=== PATIENT | male | born 1960 | race Caucasian/White ===

== ENCOUNTER 2018-04-18 15:56 | Emergency (ER) | payer OTHER ==
[~2018-04-18] VITALS: Ht 177.8 cm; Wt 65.8 kg
[2018-04-18] MEDS ORDERED: CLON1TAB12 PO (16:08)
[2018-04-18] MEDS ORDERED: TAMS-3 PO (16:08)
[2018-04-18] MEDS ORDERED: FINA5TAB11 PO (16:08)
[2018-04-18] MEDS ORDERED: METO-356 PO (16:08)
[2018-04-18] MEDS ORDERED: CARB1TAB21 PO (16:08)
[2018-04-18] MEDS ORDERED: CARB1TAB40 PO (16:08)
[2018-04-18] MEDS ORDERED: SERT50TA PO (16:08)
--- NOTE | 2018-04-18 16:25 | NUR ---
Dr Westbrook at the bedside for MSE.
[2018-04-18 16:55] LABS: BASOPHILS % (AUTO) 0.7 % (0.0-2.0); EOSINOPHILS # (AUTO) 0.3 K/uL (0.0-0.7); EOSINOPHILS % (AUTO) 4.1 % (0.0-7.0); HEMATOCRIT 37.6 % (36.7-47.1); HEMOGLOBIN 13.1 g/dL (12.5-16.3); LYMPHOCYTES # (AUTO) 1.9 K/uL (20.0-40.0); LYMPHOCYTES % (AUTO) 31.3 % (20.5-51.5); MEAN CORPUSCULAR HEMOGLOBIN 31.9 uug (23.8-33.4); MEAN CORPUSCULAR HGB CONC 35 g/dL (32.5-36.3); MEAN CORPUSCULAR VOLUME 91.8 fL (73.0-96.2); MONOCYTES # (AUTO) 0.4 K/uL (2.0-10.0); NEUTROPHILS # (AUTO) 3.6 K/uL (1.8-8.9); NEUTROPHILS % (AUTO) 57.9 % (38.5-71.5); PLATELET COUNT (AUTO) 244 K/uL (152-348); WHITE BLOOD COUNT (AUTO) 6.2 K/uL (3.6-10.2)
[2018-04-18 17:03] LABS: CREATININE 0.8 mg/dL (0.6-1.3); POTASSIUM 4.5 mmol/L (3.5-5.1)
[2018-04-18 17:50] VITALS: BP 101/70
--- NOTE | 2018-04-18 17:51 | NUR ---
Patient discharged to home in stable conditon. Written and verbal after care instructions given. Patient verbalizes understanding of instructions. Pt left ER w/ steady gait.
== END 2018-04-18 17:51 | disposition home or self-care (01) ==
LOC: ER 15:56
DX: Z00.00 Encounter for general adult medical examination without abnormal findings (principal); R00.2 Palpitations; Z79.899 Other long term (current) drug therapy
CPT/HCPCS: 36415; 70030-TC; 85025; 93005; A4663